=== PATIENT | male | born 1990 | race Caucasian/White ===

== ENCOUNTER 2016-12-20 22:39 | Emergency (ER) | payer OTHER ==
[2016-12-20 23:04] VITALS: BP 135/76; BMI 40.6
--- NOTE | 2016-12-20 23:22 | DR.GENAD ---
HPI - Complaint/Symptoms Chief Complaint:: feels like something is scratching his left eye. eyelid feels warm and eye feels like it's on fire started about 30mins ago Self Treatment fo Chief Complaint: tried washing out with water - Nurses notes reviewed Nurses Notes Review: Yes - Source History Provided: Patient - Mode of Arrival Mode of Arrival: Ambulatory - Timing Onset of Chief Complaint: 12/20/16 PMH - PMH Past Medical History: Yes Past Medical History: Hypertension Past Medical History Comment: bi-polar disorder Past Surgical History: Yes Past Surgical History Comment: wisdom teeth removed - Family History History of Family Medical Conditions: Yes Family Medical History: Cancer, Hypertension Family Medical History Comment: alcoholics, depression, thyroid - Social History Does patient currently use any type of tobacco product: No Have you used tobacco products in the last 12 months: No Type of Tobacco Use: None Does any household member use tobacco: Yes Alcohol Use: Rarely Do you use any recreational Drugs:: No Lives With: Family Lives Where: Home - infectious screening In the last 2 months have you had wt loss of >10#?: NO Have you had fever, night sweats or hemotysis?: No Have you traveled outside the country in the last 6 months?: No Isolation: Standard PE - Vital Signs Vitals: Temperature 99.6 F Pulse Rate 88 Respiratory Rate 20 Blood Pressure 135/76 O2 Sat by Pulse Oximetry 97 - Discharge Plan Disposition: LWBS After Triage Condition: Stable - Follow ups/Referrals Follow ups/Referrals: NFD,None [Primary Care Provider] - 3 days - Instructions
== END 2016-12-20 23:46 | disposition left against medical advice (07) ==
LOC: ER 22:39
DX: H57.12 Ocular pain, left eye (principal)
CPT/HCPCS: 99281

== ENCOUNTER 2016-12-27 15:15 | Emergency (ER) | payer SELFPAY ==
[2016-12-27 15:24] VITALS: BP 135/76
[2016-12-27 15:28] VITALS: BMI 40.6
--- NOTE | 2016-12-27 15:44 | DR.GENAD ---
HPI - PCP Primary Care Physician: nfd - Complaint/Symptoms Chief Complaint:: patient stated about a month ago his right great toe has a ingrown nail. he tried to cut it out his self - Nurses notes reviewed Nurses Notes Review: Yes - Source History Provided: Patient - Mode of Arrival Mode of Arrival: Ambulatory - Timing Onset of Chief Complaint: 11/27/16 Came on: Gradually - Duration Duration: Constant How lon Duration: Days - Location Location: right great toe - Severity Severity: Mild - Modifying Factors Worsens:: pressure - Associated Signs and Symptoms Associated Signs and Symptoms: drainageg PMH - PMH Past Medical History: Yes Past Medical History: Hypertension Past Medical History Comment: bipolar, Past Surgical History: Yes Past Surgical History Comment: teeth - Family History History of Family Medical Conditions: No Family Medical History: Cancer, Hypertension - Social History Does patient currently use any type of tobacco product: No Have you used tobacco products in the last 12 months: No Type of Tobacco Use: None Does any household member use tobacco: No Alcohol Use: Rarely Do you use any recreational Drugs:: No Lives With: Family - infectious screening In the last 2 months have you had wt loss of >10#?: NO Have you had fever, night sweats or hemotysis?: No Have you traveled outside the country in the last 6 months?: No Isolation: Standard ROS - Review of Systems Constitutional: No Symptoms Reported Eyes: No Symptoms Reported ENTM: No Symptoms Reported Respiratoy: No Symptoms Reported Cardiovascular: No Symptoms Reported Gastrointestinal/Abdominal: No Symptoms Reported Genitourinary: No Symptoms Reported Neurological: No Symptoms Reported Musculoskeletal: No Symptoms Reported Integumentary: Wound (right great toe margin red with drainage) Endocrine: No Symptoms Reported Psychiatric: No Symptoms Reported PE - Vital Signs Vitals: Temperature 98.7 F Respiratory Rate 16 Blood Pressure 135/76 - General Limitations: No Limitations General Appearance: Alert, In No Apparent Distress - Head Head Exam: Normal Inspection - Eyes Eye exam: EOMI. negative: Scleral Icterus, Conjunctival Injection - Neck Neck Exam: Normal Inspection, Full ROM, Trachea Midline - Chest Chest Inspection: Normal Inspection - Respiratory Respiratory Exam: negative: Accessory Muscle Use, Respiratory Distress - Extremities Extremities Exam: Full ROM, Tenderness (right great toe) - Neurologic Neurological Exam: Alert, Oriented X3, CN II-XII Intact - Psychiatric Psychiatric Exam: Normal Mood - Skin Skin Exam: Intact. negative: Normal Color (red with mild drainage) - Diagnosis Discharge Problem: Ingrown right big toenail - Discharge Plan Condition: Stable Prescriptions: Cephalexin [Keflex Cap 500 mg] 500 mg PO BID #20 cap Indomethacin [Indocin Cap 25 mg] 25 mg PO TID #30 cap - Follow ups/Referrals Follow ups/Referrals: NFD,None [Primary Care Provider] - 3 days - Instructions
[2016-12-27] MEDS ORDERED: KEFLEX CAP 500 MG PO ONE ×2 (16:06→16:18)
== END 2016-12-27 16:21 | disposition home or self-care (01) ==
LOC: ER 15:15
DX: L60.0 Ingrowing nail (principal)
CPT/HCPCS: 99281; 99282

== ENCOUNTER 2017-08-10 23:40 | Emergency (ER) | payer OTHER ==
[2017-08-10 23:46] VITALS: BP 139/79; BMI 39.3
[2017-08-11] MEDS ORDERED: AUGMENTIN 500 MG/125 MG TAB PO ONE ×2 (00:20→00:25)
[2017-08-11] MEDS ORDERED: BENADRYL CAP 50 MG PO ONE (00:21)
[2017-08-11] MEDS ORDERED: BENADRYL CAP/TAB 25 MG PO ONE (00:25)
--- NOTE | 2017-08-11 00:27 | DR.GENAD ---
HPI - PCP Primary Care Physician: NFD - Complaint/Symptoms Chief Complaint Doctors Comments: Patient states he was eating Chex Mix about two hours ago and got strangled and thinks one is stuck in his throat because he has been doing a lot of coughing trying to cough it up. states he was vomiting after her drink or eat at home but has not had that problem while in the emergency room. Patient drank a whole 24 oz cup of water without any problems in the emergency room without any nausea or vomiting afterwards. States he has a problem with his sinus and has been out of his medicine for weeks. States he was taking Zyrtec and using flonase but has not used any in weeks. He denies fever, chills, vomiting or diarrhea presently. States he does not have a local doctor but had doctors in [place] and he is her visiting his sick grand mother. States his appetite has been decreased but he has not had any problems swallowing his food. Chief Complaint:: PATIENT REPORTS HE WAS EATING CHEX MIX AND A PIECE GOT LODGED IN HIS THROAT AND IT HURTS TO BREATH. REPORTS HE GOT CHOKED AND FEELS LIKE IT IS STILL IN HIS THROAT. INCIDENT HAPPENED 2 HOURS AGO. - Nurses notes reviewed Nurses Notes Review: Yes - Source History Provided: Patient - Mode of Arrival Mode of Arrival: Ambulatory - Timing Onset of Chief Complaint: 08/10/17 Came on: Suddenly - Duration Duration: Constant How lon Duration: Hours - Location Location: throat - Severity Severity: Mild - Modifying Factors Worsens:: coughing Improves:: nothing PMH - PMH Past Medical History: Yes Past Medical History: Hypertension Past Surgical History: Yes Past Surgical History Comment: WISDON TEETH REMOVED - Family History History of Family Medical Conditions: Yes Family Medical History: Cancer, Hypertension - Social History Type of Tobacco Use: None Alcohol Use: Occasionally Do you use any recreational Drugs:: No Lives With: Family Lives Where: Home - infectious screening In the last 2 months have you had wt loss of >10#?: NO Have you had fever, night sweats or hemotysis?: No Have you traveled outside the country in the last 6 months?: No Isolation: Standard ROS - Review of Systems Constitutional: No Symptoms Reported. negative: See HPI, Chills, Diaphoresis, Fever, Malaise, Weakness, Irritable, Fatigue, Loss of Appetite, Other Eyes: No Symptoms Reported ENTM: No Symptoms Reported, Nose Discharge, Nose Congestion, Throat Pain. negative: See HPI, Ear Pain, Ear Discharge, Pulling on Ears, Hearing Loss, Nose Pain, Epistaxis, Mouth Pain, Mouth Swelling, Loose Teeth, Drooling, Throat Swelling, Ear Foreign Body Respiratoy: No Symptoms Reported, Non-Productive Cough. negative: See HPI, Productive Cough, Moist Cough, Dry Cough, Hacking Cough, Barking Cough, Brassy Cough, Orthopnea, Short of Breath, Stridor, Wheezing, Hemoptysis, Other Cardiovascular: No Symptoms Reported. negative: See HPI, Chest Pain, Edema, Palpitations, Syncope, Cyanosis, Skin Mottling, Other Gastrointestinal/Abdominal: No Symptoms Reported. negative: See HPI, Abdominal Pain, Constipation, Diarrhea, Nausea, Vomiting, Food Intolerance, Other Genitourinary: No Symptoms Reported. negative: See HPI, Discharge, Dysuria, Frequency, Hematuria, Pain, Bleeding, Other Neurological: No Symptoms Reported, Anxiety. negative: See HPI, Depressed, Emotional Problems, Headache, Numbness, Paresthesia, Pre-existing Deficit, Seizure, Tingling, Tremors, Weakness, Dizziness, Problems Walking, Speech Problem, Other Musculoskeletal: No Symptoms Reported. negative: See HPI, Back Pain, Gout, Joint Pain, Joint Swelling, Muscle Pain, Muscle Stiffness, Neck Pain, Right, Left, Neck, Chest wall, Rib(s), Back, Shoulder, Arm, Elbow, Forearm, Wrist, Hand , Pelvis, Hip, Leg, Knee, Ankle, Foot, Other Integumentary: No Symptoms Reported. negative: See HPI, Change in Color, Change in Hair/Nails, Dryness, Lesions, Lumps, Rash, Itching, Wound, Bruises, Juandice, Other Hematologic/Lymphatic: No Symptoms Reported Endocrine: No Symptoms Reported Psychiatric: No Symptoms Reported. negative: See HPI, Anxiety, Depression, Hallucinations, Excessive crying, Suicidal, Other PE - Vital Signs Vitals: Temperature 98.4 F Pulse Rate 87 Respiratory Rate 20 Blood Pressure 139/79 O2 Sat by Pulse Oximetry 99 - General Limitations: No Limitations General Appearance: Alert, In No Apparent Distress. negative: Appears Intoxicated, Anxious, Lethargic, Obtunded, In Distress, Obese, Cachectic, Other - Head Head Exam: Normal Inspection, Atraumatic, Normocephalic - Eyes Eye exam: Normal Appearance, PERRL, EOMI. negative: Scleral Icterus, Conjunctival Injection, Nystagmus, Miosis, Mydrasis, Periorbital Swelling, Periorbital Tenderness, Other - ENT ENT Exam: Normal Exam, Normal Oropharynx, Normal External Ear Exam, TM's Normal Bilaterally (postnasal drainage; thick yellow back of throat; nasal congestion; edematous mucosal) External Ear Exam: Normal External Inspection TM/Canal Exam: Bilateral Normal Nose Exam: Normal Nose Exam. negative: Sinus Tenderness, Nasal Deviation, Crepitus, Septal Hematoma, Laceration, Abrasion, Other Mouth Exam: Normal Inspection. negative: Drooling, Trismus, Lip Swelling, Tongue Elevation, Tongue Swelling, Laceration, Other Throat Exam: Normal Inspection. negative: Tonsillar Erythema, Tonsillomegaly, Tonsillar Exudate, R Peritonsillar Mass, L Peritonsillar Mass, Muffled Voice, Other - Neck Neck Exam: Normal Inspection, Full ROM, Trachea Midline. negative: Tenderness, Meningismus, Lymphadenopathy, Thyromegaly, Other - Chest Chest Inspection: Normal Inspection, Symmetric Chest Wall Rise. negative: Tenderness, Rash, Abscess, Other - Respiratory Respiratory Exam: Normal Lung Sounds Bilat Respiratory Exam: Bilateral Clear to Auscultation - Cardiovascular Cardiovascular Exam: Regular Rate, Normal Rhythm, Normal Heart Sounds - Abdominal Exam Abdominal Exam: Normal Inspection, Normal Bowel Sounds, Soft. negative: Distention, Tenderness, Guarding, Rebound, Rigidity, Dimnished Bowel Sounds, Hyperactive Bowel Sounds, Hypoactive Bowel Sounds, Organomegaly, Trauma, Incision, Ascites, Mass, Bruit, Pulsatile Mass, Hernia, Other Abdominal Tenderness: negative: RUQ, RLQ, LUQ, LLQ, Epigastrium, Suprapubic, Diffuse, Mild, Moderate, Severe, Other - Extremities Extremities Exam: Normal Inspection, Full ROM, Normal Capillary Refill. negative: Tenderness, Edema, Joint Swelling, Calf Tenderness, Other - Back Back Exam: Normal Inspection, Full ROM. negative: Tenderness, (R) CVA Tenderness, (L) CVA Tenderness, Muscle Spasm, Paraspinal Tenderness, Vertebral Tenderness, Rashes, (R) Sciatic Notch Tenderness, (L) Sciatic Notch Tendern, (R ) Straight Leg Raise, (L) Straight Leg Raise, Other - Neurologic Neurological Exam: Alert, Oriented X3, CN II-XII Intact, Normal Gait, Reflexes Normal - Psychiatric Psychiatric Exam: Normal Affect, Normal Mood - Skin Skin Exam: Warm, Dry, Intact, Normal Color Course - Reevaluation 1st: Improved - Education/Counseling Education/Counseling: Patient, Family Educated On: Treatment, Diagnosis, Prognosis, Needs for Follow Up - Diagnosis Discharge Problem: dysphagia Sinusitis, acute maxillary Qualifiers: Recurrence: not specified as recurrent Qualified Code(s): J01.00 - Acute maxillary sinusitis, unspecified - Discharge Plan Disposition: HOME, SELF-CARE Condition: Stable Prescriptions: Amoxicillin/Potassium Clav [Augmentin 875-125 Tablet] 1 tab PO Q12H #20 tab Cetirizine HCl [Zyrtec Tab 10 mg] 10 mg PO DAILY #30 tab Fluticasone Nasal [place] [FLONASE NASAL SPRAY *] 2 sprays ENOSTRIL DAILY #1 each - Follow ups/Referrals Follow ups/Referrals: NFD,None [Primary Care Provider] - 3 days Tolu Flower [STAFF PHYSICIAN] - 3 days - Instructions Instructions: Sinusitis, Adult, [id number], Dysphagia
== END 2017-08-11 00:41 | disposition home or self-care (01) ==
LOC: ER 23:40
DX: R13.10 Dysphagia, unspecified (principal); J01.80 Other acute sinusitis
CPT/HCPCS: 99282

== ENCOUNTER 2017-08-20 17:00 | Emergency (ER) | payer OTHER ==
[2017-08-20 17:06] VITALS: BMI 39.3
[2017-08-20 18:04] VITALS: BP 133/89
--- NOTE | 2017-08-20 18:10 | DR.GENAD ---
HPI - PCP Primary Care Physician: [place] - Complaint/Symptoms Chief Complaint Doctors Comments: Patient states that he drank five energy drinks today Chief Complaint:: PT STATES " MY LISA WAS SICK AND I WAS VISITING HER AT THE GROUP HOME AND I BEGAN TO FELL LIGHT HEADED AND HAVE CP AND BLURRED VISION.. 142/100 WAS PTS BP.. Self Treatment fo Chief Complaint: PT DENIES THIS HAPPENED TO HIM BEFORE.. - Source History Provided: Patient - Mode of Arrival Mode of Arrival: Ambulatory - Timing Onset of Chief Complaint: 08/20/17 PMH - PMH Past Medical History: Yes Past Medical History: Hypertension Past Medical History Comment: BI-POLAR Past Surgical History: No - Family History History of Family Medical Conditions: No Family Medical History: Cancer, Hypertension - Social History Does patient currently use any type of tobacco product: No Have you used tobacco products in the last 12 months: No Type of Tobacco Use: None Does any household member use tobacco: No Alcohol Use: None Do you use any recreational Drugs:: No Lives With: Family Lives Where: Home - infectious screening In the last 2 months have you had wt loss of >10#?: NO Have you had fever, night sweats or hemotysis?: No Have you traveled outside the country in the last 6 months?: No Isolation: Standard ROS - Review of Systems Constitutional: negative: Diaphoresis Eyes: No Symptoms Reported ENTM: No Symptoms Reported Respiratoy: No Symptoms Reported Cardiovascular: No Symptoms Reported Gastrointestinal/Abdominal: No Symptoms Reported Genitourinary: No Symptoms Reported Neurological: No Symptoms Reported Musculoskeletal: No Symptoms Reported Integumentary: No Symptoms Reported Hematologic/Lymphatic: No Symptoms Reported Endocrine: No Symptoms Reported Psychiatric: No Symptoms Reported All Other Systems: Reviewed and Negative PE - Vital Signs Vitals: Temperature 98.0 F Pulse Rate 88 Respiratory Rate 20 Blood Pressure 133/89 O2 Sat by Pulse Oximetry 100 - General Limitations: No Limitations General Appearance: Alert, In No Apparent Distress - Head Head Exam: Normal Inspection, Atraumatic - Eyes Eye exam: Normal Appearance, PERRL, EOMI - ENT ENT Exam: Normal Exam External Ear Exam: Normal External Inspection TM/Canal Exam: Bilateral Normal Nose Exam: Normal Nose Exam Mouth Exam: Normal Inspection Throat Exam: Normal Inspection - Neck Neck Exam: Normal Inspection, Full ROM - Chest Chest Inspection: Normal Inspection - Respiratory Respiratory Exam: Normal Lung Sounds Bilat Respiratory Exam: Bilateral Clear to Auscultation - Cardiovascular Cardiovascular Exam: Regular Rate, Normal Rhythm - Abdominal Exam Abdominal Exam: Normal Inspection Abdominal Tenderness: negative: RUQ, RLQ, LUQ, LLQ, Epigastrium, Suprapubic, Diffuse, Mild, Moderate, Severe, Other - Extremities Extremities Exam: Normal Inspection, Full ROM - Back Back Exam: Normal Inspection, Full ROM - Neurologic Neurological Exam: Alert, Oriented X3, CN II-XII Intact - Psychiatric Psychiatric Exam: Normal Affect, Normal Mood - Skin Skin Exam: Warm, Dry, Intact - Diagnosis Discharge Problem: Elevated BP without diagnosis of hypertension, Excessive caffeine intake - Discharge Plan Condition: Stable - Follow ups/Referrals Follow ups/Referrals: NFD,None [Primary Care Provider] - 3 days - Instructions
== END 2017-08-20 18:20 | disposition home or self-care (01) ==
LOC: ER 17:00
DX: R03.0 Elevated blood-pressure reading, without diagnosis of hypertension (principal); R63.8 Other symptoms and signs concerning food and fluid intake
CPT/HCPCS: 93005; 93010; 99281; 99282